=== PATIENT | male | born 1990 | race Caucasian/White ===

== ENCOUNTER → 2020-07-04 | Outpatient (CLI) | payer OTHER | END | disposition home or self-care (01) | LOC: LAB 12:46 | PROVIDERS: ATTEND Internal Medicine Gastroenterology | DX: Z01.818 Encounter for other preprocedural examination (principal); Z11.59 Encounter for screening for other viral diseases; Z85.038 Personal history of other malignant neoplasm of large intestine | CPT/HCPCS: 87426; U0003 ==

== ENCOUNTER → 2020-07-06 | Day surgery (SDC) | payer OTHER ==
[~2020-07-06] MED LIST: IV RINGERS,LACTATED 1000ML 1,000 ML IV SCH; LIDOCAINE 2% PF 5 ML VIAL. ONE; PROPOFOL 10 MG/ML (20ML) VIAL. IV ONE
[2020-07-06 09:05] VITALS: BP 105/68
== END | disposition home or self-care (01) ==
LOC: ENDOS 07:31 → EDUNIT# 08:30
PROVIDERS: ATTEND Internal Medicine Gastroenterology
DX: Z12.11 Encounter for screening for malignant neoplasm of colon (principal); K64.0 First degree hemorrhoids; Z80.0 Family history of malignant neoplasm of digestive organs
CPT/HCPCS: 45378; J2704